=== PATIENT | male | born 1950 | race African-American/Black ===

== ENCOUNTER 2017-03-05 13:29 | Emergency (ER) | payer MEDICARE, OTHER ==
[~2017-03-05] VITALS: Ht 167.6 cm; Wt 72.6 kg
[~2017-03-05 13:29] MED LIST: FLOMAX0.4 MG ORAL; NORCO 5-325 TA1 EACH ORAL; PHENERGAN25 M1 ORAL; RANITIDINE HCL150 MG ORAL; TRAMADOL HCL50 MG ORAL; ZOFRAN ODT4 MG ORAL
[2017-03-05 13:52] VITALS: BP 167/85
[2017-03-05 14:18] LABS: APPEARANCE,URINE CLEAR; KETONES,URINE NEGATIVE (NEGATIVE); LEUKOCYTE ESTERASE ,URINE NEGATIVE (NEGATIVE); NITRITE,URINE NEGATIVE (NEGATIVE); PH,URINE 6 (4.5-8.0); PROTEIN,URINE NEGATIVE (NEGATIVE); UROBILINOGEN,URINE 1 MG/DL (0.0-1.0)
[2017-03-05 14:33] LABS: BASOPHILS % (AUTO) 1.4 % (0.0-2.0); EOSINOPHILS % (AUTO) 4.6 % (0.0-3.0); LYMPHOCYTES % (AUTO) 32.4 % (20.0-45.0); MEAN CORPUSCULAR HEMOGLOBIN 28.1 PG (27.0-31.0); MEAN CORPUSCULAR HGB CONC 31.2 G/DL (32.0-36.0); MEAN CORPUSCULAR VOLUME 90 FL (80-99); MEAN PLATELET VOLUME 7.9 FL (6.5-10.1); MONOCYTES % (AUTO) 9.8 % (1.0-10.0); NEUTROPHILS % (AUTO) 51.8 % (45.0-75.0); PLATELET COUNT 260 K/UL (150-450); RED BLOOD COUNT 4.86 M/UL (4.70-6.10); RED CELL DISTRIBUTION WIDTH 13.7 % (11.6-14.8); WHITE BLOOD COUNT 4.3 K/UL (4.8-10.8)
--- NOTE | 2017-03-05 14:40 | Emergency Room Report ---
History of Present Illness General Chief Complaint: Abdominal Pain Source: Patient Present Illness HPI This patient states that for the past couple days he has been "felt well." He has had some nausea. He's had some abdominal pain but states it is non-focal. He primarily just feels weak and fatigued. He denies fever or chills. He denies vomiting. He denies dysuria or hematuria. He denies cough or congestion. He denies chest pain or shortness of breath. He has no other complaints. Allergies: Coded Allergies: No Known Allergies (Unverified , 09/12/13) Patient History Past Medical History: see triage record, HTN, GERD, other - kidney stones, HCV Social History: Denies: alcohol use, drug use, smoking Reviewed Nursing Documentation: PMH: Agreed, PSxH: Agreed Nursing Documentation-PMH Hx Hypertension: Yes Hx Gastrointestinal Problems: Yes - GERD Review of Systems All Other Systems: negative except mentioned in HPI Physical Exam Vital Signs Date Time Temp Pulse Resp B/P Pulse Ox O2 Delivery O2 Flow Rate FiO2 03/05/17 13:46 97.5 72 20 167/85 96 Room Air Sp02 EP Interpretation: reviewed, normal General Appearance: no apparent distress, alert, GCS 15, non-toxic Head: normocephalic, atraumatic Eyes: bilateral eye PERRL, bilateral eye normal inspection ENT: hearing grossly normal, normal pharynx, no angioedema, normal voice Neck: full range of motion, supple/symm/no masses Respiratory: chest non-tender, lungs clear, normal breath sounds, speaking full sentences Cardiovascular #1: regular rate, rhythm, no edema Gastrointestinal: normal bowel sounds, non tender, soft, non-distended, no guarding, no rebound Rectal: deferred Musculoskeletal: back normal, gait/station normal, normal range of motion, non- tender Neurologic: alert, oriented x3, responsive, motor strength/tone normal, sensory intact, speech normal Psychiatric: judgement/insight normal, memory normal, mood/affect normal, no suicidal/homicidal ideation Skin: normal color, no rash, warm/dry, well hydrated Medical Decision Making Diagnostic Impression: Primary Impression: Gastritis ER Course This patient has a clinical presentation consistent with gastritis. The location of the pain and history and physical examination is consistent with this. I considered other concerning differentials, to include appendicitis, cholelithiasis, cholecystitis, pancreatitis, perforated viscus, aortic aneurysm , and pyelonephritis to name a few. However, laboratory workup in combination with medical and surgical history and physical exam makes these unlikely at this time. I did educate the patient on close return precautions and followup instructions. Labs Test 03/05/17 14:00 03/05/17 14:10 Urine Color Yellow Urine Appearance Clear Urine pH 6 (4.5-8.0) Urine Specific [place] 1.020 (1.005-1.035) Urine Protein Negative (NEGATIVE) Urine Glucose (UA) Negative (NEGATIVE) Urine Ketones Negative (NEGATIVE) Urine Occult Blood Negative (NEGATIVE) Urine Nitrite Negative (NEGATIVE) Urine Bilirubin Negative (NEGATIVE) Urine Urobilinogen 1 MG/DL (0.0-1.0) Urine Leukocyte Esterase Negative (NEGATIVE) White Blood Count 4.3 K/UL (4.8-10.8) Red Blood Count 4.86 M/UL (4.70-6.10) Hemoglobin 13.7 G/DL (14.2-18.0) Hematocrit 43.8 % (42.0-52.0) Mean Corpuscular Volume 90 FL (80-99) Mean Corpuscular Hemoglobin 28.1 PG (27.0-31.0) Mean Corpuscular Hemoglobin Concent 31.2 G/DL (32.0-36.0) Red Cell Distribution Width 13.7 % (11.6-14.8) Platelet Count 260 K/UL (150-450) Mean Platelet Volume 7.9 FL (6.5-10.1) Neutrophils (%) (Auto) 51.8 % (45.0-75.0) Lymphocytes (%) (Auto) 32.4 % (20.0-45.0) Monocytes (%) (Auto) 9.8 % (1.0-10.0) Eosinophils (%) (Auto) 4.6 % (0.0-3.0) Basophils (%) (Auto) 1.4 % (0.0-2.0) Prothrombin Time 11.4 SEC (9.30-11.50) Prothromb Time International Ratio 1.1 (0.9-1.1) Activated Partial Thromboplast Time 33 SEC (23-33) Sodium Level 139 mEQ/L (135-145) Potassium Level 5.1 mEQ/L (3.4-4.9) Chloride Level 101 mEQ/L (98-107) Carbon Dioxide Level 28 mEQ/L (20-30) Anion Gap 10 (5-15) Blood Urea Nitrogen 13 mg/dL (7-23) Creatinine 1.1 mg/dL (0.7-1.2) Estimat Glomerular Filtration Rate > 60 mL/min (>60) Glucose Level 96 mg/dL (74-106) Calcium Level 9.0 mg/dL (8.6-10.2) Total Bilirubin 0.7 mg/dL (0.0-1.2) Aspartate Amino Transf (AST/SGOT) 20 U/L (5-40) Alanine Aminotransferase (ALT/SGPT) 13 U/L (3-41) Alkaline Phosphatase 60 U/L (40-129) Total Creatine Kinase 259 U/L (38-174) Troponin I < 0.30 ng/mL (<=0.30) Total Protein 7.6 g/dL (6.6-8.7) Albumin 3.9 g/dL (3.5-5.2) Globulin 3.7 g/dL Albumin/Globulin Ratio 1.0 (1.0-2.7) Lipase 19 U/L (< 60) Last Vital Signs Date Time Temp Pulse Resp B/P Pulse Ox O2 Delivery O2 Flow Rate FiO2 03/05/17 13:52 97.5 72 20 167/85 96 Room Air Status: improved Disposition: HOME, SELF-CARE Condition: Improved Patient Instructions: Gastroesophageal Reflux Disease, Adult, Gastritis, Adult NORMA KERR D.O. Mar 05, 2017 14:40
[2017-03-05 14:43] LABS: INR 1.1 (0.9-1.1); PROTHROMBIN TIME 11.4 SEC (9.30-11.50)
[2017-03-05] MEDS ORDERED: Lidocaine 2% Visc 15ml soln ORAL ONE (14:45)
[2017-03-05 14:50] LABS: ALANINE AMINOTRANSFERASE 13 U/L (3-41); ASPARTATE AMINO TRANSFERASE 20 U/L (5-40); CHLORIDE 101 mEQ/L (98-107); CREATININE 1.1 mg/dL (0.7-1.2); GLOMERULAR FILTRATION RATE > 60 mL/min (>60); LIPASE 19 U/L (< 60); POTASSIUM 5.1 mEQ/L (3.4-4.9); SODIUM 139 mEQ/L (135-145); TROPONIN I < 0.30 ng/mL (<=0.30)
[2017-03-05 15:02] LABS: ANION GAP 10 (5-15); CARBON DIOXIDE 28 mEQ/L (20-30); HEMOLYSIS 4; TOTAL PROTEIN 7.6 g/dL (6.6-8.7)
[2017-03-05] MEDS ORDERED: MAALOX MAXIMUM355 M1 PO (16:25)
[2017-03-05] MEDS ORDERED: OMEPRAZOLE40 M1 ORAL (16:25)
[2017-03-05 16:37] VITALS: BP 154/79
[2017-03-05 16:38] VITALS: BP 167/85
== END 2017-03-05 16:38 | disposition home or self-care (01) ==
LOC: EMR 14:11
DX: K29.70 Gastritis, unspecified, without bleeding (principal); I10 Essential (primary) hypertension; K21.9 Gastro-esophageal reflux disease without esophagitis; Z87.442 Personal history of urinary calculi
CPT/HCPCS: 36415; 80053; 81003; 82550; 83690; 84484; 85025; 85610; 85730; 96360

== ENCOUNTER 2017-07-24 15:04 | Emergency (ER) | payer MEDICARE, OTHER ==
[~2017-07-24] VITALS: Ht 167.6 cm; Wt 72.6 kg
[~2017-07-24 15:04] MED LIST changes: +MAALOX MAXIMUM355 M1 PO; +OMEPRAZOLE40 M1 ORAL
[2017-07-24 15:30] VITALS: BP 169/68
--- NOTE | 2017-07-24 15:48 | Emergency Room Report ---
History of Present Illness General Chief Complaint: Flu Like Symptoms Source: Patient Present Illness HPI Patient is a 66 year-old male male who presented after increased fever. Patient was noted to have onset of symptoms since yesterday. Patient reports having a fever nasal congestion sore throat and headache. He had a nonproductive cough. Patient denied any dysuria. He reports having prior history of gastritis Allergies: Coded Allergies: No Known Allergies (Unverified , 09/12/13) Patient History Past Medical History: see triage record, GERD, other - prostate disease\ Reviewed Nursing Documentation: PMH: Agreed, PSxH: Agreed Nursing Documentation-PMH Past Medical History: No History, Except For Hx Hypertension: Yes Hx Gastrointestinal Problems: Yes - GERD Review of Systems All Other Systems: negative except mentioned in HPI Physical Exam Vital Signs Date Time Temp Pulse Resp B/P (MAP) Pulse Ox O2 Delivery O2 Flow Rate FiO2 07/24/17 15:32 101.8 96 18 157/82 97 Room Air Sp02 EP Interpretation: reviewed, normal General Appearance: normal inspection, well appearing, no apparent distress, alert, GCS 15 Head: atraumatic ENT: normal ENT inspection, hearing grossly normal, normal voice Neck: normal inspection, full range of motion, supple, no bony tend Respiratory: normal inspection, lungs clear, normal breath sounds, no respiratory distress, no retraction, no wheezing Cardiovascular #1: regular rate, rhythm, no edema Gastrointestinal: normal inspection, normal bowel sounds, non tender, soft, no guarding, no hernia Genitourinary: no CVA tenderness Musculoskeletal: normal inspection, back normal, normal range of motion Neurologic: normal inspection, alert, responsive, speech normal Psychiatric: normal inspection, judgement/insight normal, mood/affect normal Skin: normal inspection, normal color, no rash Medical Decision Making Diagnostic Impression: Primary Impression: Acute febrile illness ER Course Patient presented for fever. Differential diagnosis included wasn't limited to pneumonia, urinary tract infection, drug fever, allergic reaction, sepsis, cholecystitis, among others.Because of complexity of patient's case laboratory testing and imaging studies were ordered. The patient noted have a normal white blood count. Patient started on IV fluids. He was given Tylenol for fever. Influenza A and B. was negative. The patient was noted to have a nonproductive cough. A chest x-ray one view read by radiology showed normal cardiac size without evident infiltrate. The patient was empirically given Rocephin [address] Lacey was contacted for inpatient management. Labs Test 07/24/17 16:38 07/24/17 16:50 White Blood Count 5.9 K/UL (4.8-10.8) Red Blood Count 4.86 M/UL (4.70-6.10) Hemoglobin 12.8 G/DL (14.2-18.0) Hematocrit 43.5 % (42.0-52.0) Mean Corpuscular Volume 90 FL (80-99) Mean Corpuscular Hemoglobin 26.3 PG (27.0-31.0) Mean Corpuscular Hemoglobin Concent 29.3 G/DL (32.0-36.0) Red Cell Distribution Width 13.8 % (11.6-14.8) Platelet Count 227 K/UL (150-450) Mean Platelet Volume 7.7 FL (6.5-10.1) Neutrophils (%) (Auto) 72.9 % (45.0-75.0) Lymphocytes (%) (Auto) 11.0 % (20.0-45.0) Monocytes (%) (Auto) 11.7 % (1.0-10.0) Eosinophils (%) (Auto) 1.6 % (0.0-3.0) Basophils (%) (Auto) 2.8 % (0.0-2.0) Sodium Level 138 MMOL/L (136-145) Potassium Level 5.0 MMOL/L (3.5-5.1) Chloride Level 104 MMOL/L (98-107) Carbon Dioxide Level 29 MMOL/L (21-32) Anion Gap 5 mmol/L (5-15) Blood Urea Nitrogen 15 mg/dL (7-18) Creatinine 1.2 MG/DL (0.55-1.30) Estimat Glomerular Filtration Rate > 60 mL/min (>60) Glucose Level 93 MG/DL (74-106) Lactic Acid Level 1.50 mmol/L (0.66-2.22) Calcium Level 8.7 MG/DL (8.5-10.1) Total Bilirubin 0.6 MG/DL (0.2-1.0) Aspartate Amino Transf (AST/SGOT) 42 U/L (15-37) Alanine Aminotransferase (ALT/SGPT) 34 U/L (12-78) Alkaline Phosphatase 56 U/L (46-116) Total Creatine Kinase 467 U/L (26-308) Creatine Kinase MB 4.5 NG/ML (0.0-3.6) Creatine Kinase MB Relative Index 0.9 Troponin I 0.009 ng/mL (0.000-0.056) Total Protein 8.1 G/DL (6.4-8.2) Albumin 3.0 G/DL (3.4-5.0) Globulin 5.1 g/dL Albumin/Globulin Ratio 0.6 (1.0-2.7) Urine Color Pale yellow Urine Appearance Clear Urine pH 8 (4.5-8.0) Urine Specific [place] 1.010 (1.005-1.035) Urine Protein Negative (NEGATIVE) Urine Glucose (UA) Negative (NEGATIVE) Urine Ketones Negative (NEGATIVE) Urine Occult Blood Negative (NEGATIVE) Urine Nitrite Negative (NEGATIVE) Urine Bilirubin Negative (NEGATIVE) Urine Urobilinogen Normal MG/DL (0.0-1.0) Urine Leukocyte Esterase Negative (NEGATIVE) EKG Diagnostic Results Rate: normal - 87 Rhythm: NSR ST Segments: no acute changes Rhythm Strip Diag. Results Rhythm: NSR, no PVC's, no ectopy Last Vital Signs Date Time Temp Pulse Resp B/P (MAP) Pulse Ox O2 Delivery O2 Flow Rate FiO2 07/24/17 15:32 101.8 96 18 157/82 97 Room Air Status: unchanged Disposition: [facility] Condition: Stable Tae Camacho Jul 24, 2017 15:48
[2017-07-24] MEDS ORDERED: TAMIFLU75 MG ORAL (15:49)
[2017-07-24 16:07] VITALS: BP 169/68
--- NOTE | 2017-07-24 16:29 | Diagnostic Imaging Report ---
Indication: Reason For Exam: SOB Technique: One view of the chest Comparison: 12/31/2013 Findings: Lungs and pleural spaces are clear. Heart size is normal. No significant change Impression: No acute process
[2017-07-24 17:11] LABS: BASOPHILS % (AUTO) 2.8 % (0.0-2.0); EOSINOPHILS % (AUTO) 1.6 % (0.0-3.0); MEAN CORPUSCULAR HEMOGLOBIN 26.3 PG (27.0-31.0); MEAN CORPUSCULAR HGB CONC 29.3 G/DL (32.0-36.0); MEAN CORPUSCULAR VOLUME 90 FL (80-99); MEAN PLATELET VOLUME 7.7 FL (6.5-10.1); MONOCYTES % (AUTO) 11.7 % (1.0-10.0); NEUTROPHILS % (AUTO) 72.9 % (45.0-75.0); PLATELET COUNT 227 K/UL (150-450); RED BLOOD COUNT 4.86 M/UL (4.70-6.10); RED CELL DISTRIBUTION WIDTH 13.8 % (11.6-14.8); WHITE BLOOD COUNT 5.9 K/UL (4.8-10.8)
[2017-07-24 17:15] LABS: APPEARANCE,URINE CLEAR; KETONES,URINE NEGATIVE (NEGATIVE); LEUKOCYTE ESTERASE ,URINE NEGATIVE (NEGATIVE); NITRITE,URINE NEGATIVE (NEGATIVE); PH,URINE 8 (4.5-8.0); PROTEIN,URINE NEGATIVE (NEGATIVE); UROBILINOGEN,URINE NORMAL MG/DL (0.0-1.0)
[2017-07-24 17:33] LABS: ANION GAP 5 mmol/L (5-15); CALCIUM 8.7 MG/DL (8.5-10.1); CARBON DIOXIDE 29 MMOL/L (21-32); CHLORIDE 104 MMOL/L (98-107); CREATININE 1.2 MG/DL (0.55-1.30); GLOMERULAR FILTRATION RATE > 60 mL/min (>60); SODIUM 138 MMOL/L (136-145)
[2017-07-24 17:39] VITALS: BP 137/76
[2017-07-24] MEDS ORDERED: ONDANSETRON ODT4 MG ORAL (17:43)
[2017-07-24] MEDS ORDERED: cefTRIAXone 2 GM in NS 55 ML IVPB ONE (17:45)
[2017-07-24 17:49] LABS: ALANINE AMINOTRANSFERASE 34 U/L (12-78); ALBUMIN/GLOBULIN RATIO 0.6 (1.0-2.7); ASPARTATE AMINO TRANSFERASE 42 U/L (15-37); CKMB 4.5 NG/ML (0.0-3.6); TOTAL PROTEIN 8.1 G/DL (6.4-8.2)
[2017-07-24] MEDS ORDERED: Acetaminophen 500mg (ES) tab ORAL ONE (18:00)
[2017-07-24] MEDS ORDERED: DOXYCYCLINE HY100 M2 PO (18:46)
[2017-07-24] MEDS ORDERED: HYDROCODON-ACE1 EA13 (18:50)
[2017-07-24 19:33] VITALS: BP 113/63
[2017-07-24 19:46] VITALS: BP 120/69
--- NOTE | 2017-07-26 11:00 | Cardiology Report ---
APPROVED REPORT EKG Measurement Heart [id number] Normal sinus rhythm Rightward axis Borderline ECG
== END 2017-07-24 19:48 | disposition short-term general hospital (02) ==
LOC: EMR 17:32
DX: R50.9 Fever, unspecified (principal); I10 Essential (primary) hypertension; K21.9 Gastro-esophageal reflux disease without esophagitis
CPT/HCPCS: 36415; 71010; 80053; 81003; 82550; 82553; 83605; 84484; 85025; 86710; 87040; 93005; 96361; 96374; 99285; J0696

== ENCOUNTER 2017-11-26 21:11 | Emergency (ER) | payer MEDICARE, OTHER ==
[~2017-11-26] VITALS: Ht 167.6 cm; Wt 70.8 kg
[~2017-11-26 21:11] MED LIST changes: +DOXYCYCLINE HY100 M2 PO; +HYDROCODON-ACE1 EA13; +ONDANSETRON ODT4 MG ORAL; +TAMIFLU75 MG ORAL
[2017-11-26] MEDS ORDERED: ASPIRIN81 MG ORAL (21:21)
[2017-11-26 21:43] VITALS: BP 136/80
[2017-11-26 21:56] LABS: BASOPHILS % (AUTO) 1.3 % (0.0-2.0); EOSINOPHILS % (AUTO) 1.3 % (0.0-3.0); HEMATOCRIT 39.1 % (42.0-52.0); HEMOGLOBIN 12.6 G/DL (14.2-18.0); LYMPHOCYTES % (AUTO) 27.1 % (20.0-45.0); MEAN CORPUSCULAR VOLUME 85 FL (80-99); MONOCYTES % (AUTO) 16.3 % (1.0-10.0); PLATELET COUNT 255 K/UL (150-450); RED BLOOD COUNT 4.62 M/UL (4.70-6.10); RED CELL DISTRIBUTION WIDTH 13.1 % (11.6-14.8); WHITE BLOOD COUNT 3.9 K/UL (4.8-10.8)
[2017-11-26 22:08] LABS: ANION GAP 9 mmol/L (5-15); BLOOD UREA NITROGEN 23 mg/dL (7-18); CALCIUM 8.8 MG/DL (8.5-10.1); CARBON DIOXIDE 25 MMOL/L (21-32); CHLORIDE 105 MMOL/L (98-107); CREATININE 1.2 MG/DL (0.55-1.30); POTASSIUM 3.8 MMOL/L (3.5-5.1); SODIUM 139 MMOL/L (136-145)
[2017-11-26 22:12] LABS: ALANINE AMINOTRANSFERASE 48 U/L (12-78); ALBUMIN 3.3 G/DL (3.4-5.0); ALBUMIN/GLOBULIN RATIO 0.6 (1.0-2.7); ALKALINE PHOSPHATASE 123 U/L (46-116); ASPARTATE AMINO TRANSFERASE 40 U/L (15-37); BILIRUBIN,TOTAL 0.6 MG/DL (0.2-1.0)
[2017-11-26] MEDS ORDERED: ZOFRAN ODT4 MG ORAL (22:38)
[2017-11-26] MEDS ORDERED: RANITIDINE HCL150 MG ORAL (22:38)
[2017-11-26 22:55] VITALS: BP_SYST 126; BP_SYST 136; BP_DIAS 68; BP_DIAS 80
--- NOTE | 2017-11-26 23:29 | Emergency Room Report ---
History of Present Illness General Chief Complaint: Abdominal Pain Source: Patient Present Illness HPI 66-year-old male presents ED for evaluation. Presenting with abdominal pain with vomiting and diarrhea for the last 5 days. Pain is cramping, 5 out of 10, nonradiating. No spelled episodes of diarrhea. Denies fevers or chills. Denies chest pain or shortness of breath. Denies sick contacts or recent travel. No other aggravating relieving factors. Denies any other associated symptoms Allergies: Coded Allergies: No Known Allergies (Unverified , 09/12/13) Patient History Past Medical History: none, HTN, CAD, GERD Past Surgical History: none Pertinent Family History: none Social History: Denies: smoking, alcohol use, drug use Immunizations: UTD Reviewed Nursing Documentation: PMH: Agreed; PSxH: Agreed Nursing Documentation-PMH Hx Cardiac Problems: Yes - HEP C, Stent Hx Hypertension: Yes Hx Gastrointestinal Problems: Yes - GERD Review of Systems All Other Systems: negative except mentioned in HPI Physical Exam Vital Signs Date Time Temp Pulse Resp B/P (MAP) Pulse Ox O2 Delivery O2 Flow Rate FiO2 11/26/17 21:14 98.0 94 18 121/65 98 98.1 Sp02 EP Interpretation: reviewed, normal General Appearance: no apparent distress, alert, GCS 15, non-toxic Head: normocephalic, atraumatic Eyes: bilateral eye normal inspection, bilateral eye PERRL ENT: hearing grossly normal, normal pharynx, no angioedema, normal voice Neck: full range of motion, supple/symm/no masses Respiratory: chest non-tender, lungs clear, normal breath sounds, speaking full sentences Cardiovascular #1: regular rate, rhythm, no edema Cardiovascular #2: 2+ carotid (R), 2+ carotid (L), 2+ radial (R), 2+ radial (L) , 2+ dorsalis pedis (R), 2+ dorsalis pedis (L) Gastrointestinal: normal bowel sounds, non tender, soft, non-distended, no guarding, no rebound Rectal: deferred Genitourinary: normal inspection, no CVA tenderness Musculoskeletal: back normal, gait/station normal, normal range of motion, non- tender Neurologic: alert, oriented x3, responsive, motor strength/tone normal, sensory intact, speech normal Psychiatric: judgement/insight normal, memory normal, mood/affect normal, no suicidal/homicidal ideation Reflexes: 3+ bicep (R), 3+ bicep (L), 3+ tricep (R), 3+ tricep (L), 3+ knee (R) , 3+ knee (L) Skin: normal color, no rash, warm/dry, well hydrated Lymphatic: no adenopathy Medical Decision Making Diagnostic Impression: Primary Impression: gastroenteritis ER Course Hospital Course 66-year-old M presents to ED with cramping abdominal pain with vomiting, diarrhea differential diagnosis: gastritis, SBO, cholecystits, gastroenteritis Clinical course Patient placed on stretcher. On audiologist. After initial history and physical I ordered labs, IV fluids, Zofran and pepcid Labs - leukopenia noted, electrolytes ok, LFTs tammy Upon reassessment, patient states pain has improved. findings consistent with gastroenteritis Discussed findings with patient. Recommend close follow-up with PMD I feel this is a highly complex case requiring extensive working including EKG/ Rhythm strip, Xray/CT/US, Blood/urine lab work, repeat exams while in ED, and administration of strong opiates/narcotics for pain control, admission to hospital or close patient follow up. Diagnosis - gastroenteritis Stable and discharged to home with prescriptions for Zantac, zofran. Followup with PMD. Return to ED if symptoms recur or worsen Labs Test 11/26/17 21:39 White Blood Count 3.9 K/UL (4.8-10.8) Red Blood Count 4.62 M/UL (4.70-6.10) Hemoglobin 12.6 G/DL (14.2-18.0) Hematocrit 39.1 % (42.0-52.0) Mean Corpuscular Volume 85 FL (80-99) Mean Corpuscular Hemoglobin 27.3 PG (27.0-31.0) Mean Corpuscular Hemoglobin Concent 32.2 G/DL (32.0-36.0) Red Cell Distribution Width 13.1 % (11.6-14.8) Platelet Count 255 K/UL (150-450) Mean Platelet Volume 7.7 FL (6.5-10.1) Neutrophils (%) (Auto) 54.0 % (45.0-75.0) Lymphocytes (%) (Auto) 27.1 % (20.0-45.0) Monocytes (%) (Auto) 16.3 % (1.0-10.0) Eosinophils (%) (Auto) 1.3 % (0.0-3.0) Basophils (%) (Auto) 1.3 % (0.0-2.0) Sodium Level 139 MMOL/L (136-145) Potassium Level 3.8 MMOL/L (3.5-5.1) Chloride Level 105 MMOL/L (98-107) Carbon Dioxide Level 25 MMOL/L (21-32) Anion Gap 9 mmol/L (5-15) Blood Urea Nitrogen 23 mg/dL (7-18) Creatinine 1.2 MG/DL (0.55-1.30) Estimat Glomerular Filtration Rate > 60 mL/min (>60) Glucose Level 96 MG/DL (74-106) Calcium Level 8.8 MG/DL (8.5-10.1) Total Bilirubin 0.6 MG/DL (0.2-1.0) Aspartate Amino Transf (AST/SGOT) 40 U/L (15-37) Alanine Aminotransferase (ALT/SGPT) 48 U/L (12-78) Alkaline Phosphatase 123 U/L (46-116) Total Protein 8.4 G/DL (6.4-8.2) Albumin 3.3 G/DL (3.4-5.0) Globulin 5.1 g/dL Albumin/Globulin Ratio 0.6 (1.0-2.7) Lipase 119 U/L (73-393) Last Vital Signs Date Time Temp Pulse Resp B/P (MAP) Pulse Ox O2 Delivery O2 Flow Rate FiO2 11/26/17 22:55 98.1 78 12 136/80 98 98.1 Status: improved Disposition: HOME, SELF-CARE Condition: Stable Scripts Ranitidine Hcl* (ZANTAC*) 150 Mg Tablet 150 MG ORAL TWICE A DAY, #30 TAB Prov: Gianluca Young MD 11/26/17 Ondansetron Odt* (ZOFRAN ODT*) 4 Mg Tab.rapdis 4 MG ORAL Q6H PRN for Nausea & Vomiting, #30 TAB 0 Refills Prov: Gianluca Young MD 11/26/17 Referrals: NOT CHOSEN IPA/,REFERRING (PCP) Patient Instructions: Viral Gastroenteritis, Adult Gianluca Young MD Nov 26, 2017 23:29
== END 2017-11-26 22:55 | disposition home or self-care (01) ==
LOC: EMR 21:33
DX: K52.9 Noninfective gastroenteritis and colitis, unspecified (principal); K21.9 Gastro-esophageal reflux disease without esophagitis; I10 Essential (primary) hypertension; I25.10 Atherosclerotic heart disease of native coronary artery without angina pectoris; Z95.5 Presence of coronary angioplasty implant and graft; B19.20 Unspecified viral hepatitis C without hepatic coma; D72.819 Decreased white blood cell count, unspecified
CPT/HCPCS: 36415; 80053; 83690; 85025; 96374; 96375; 99284; J2405; S0028